=== PATIENT | male | born 1940 | race Caucasian/White ===

== ENCOUNTER 2020-02-13 06:54 | Emergency (ER) | payer OTHER ==
[~2020-02-13] VITALS: Ht 175.3 cm; Wt 72.6 kg
[2020-02-13 07:22] VITALS: BP_SYST 145
[2020-02-13] MEDS ORDERED: CLOP75TA2 PO (07:22)
[2020-02-13] MEDS ORDERED: METO-540 PO (07:22)
[2020-02-13] MEDS ORDERED: LIP20 PO (07:22)
[2020-02-13] MEDS ORDERED: ASPI-524 PO (07:22)
[2020-02-13] MEDS ORDERED: ISOS5TAB2 PO (07:22)
[2020-02-13] MEDS ORDERED: NPH,100V SUBQ (07:22)
[2020-02-13] MEDS ORDERED: cloNIDine HCL 0.1 MG TABLET PO ONE ×2 (08:00→09:45)
[2020-02-13] MEDS ORDERED: cloNIDine HCL 0.1 MG TABLET ONE ×2 (08:15→10:04)
[2020-02-13] MEDS ORDERED: hydrALAZINE HCL 20 MG/ML VIAL IVP ONE ×2 (11:00→12:30)
[2020-02-13] MEDS ORDERED: SSNOVOLOG SUBCUT (12:35)
[2020-02-13] MEDS ORDERED: CALC0.5C11 PO (12:35)
[2020-02-13] MEDS ORDERED: CARV12.548 PO (12:35)
[2020-02-13] MEDS ORDERED: INSU100V11 SQ (12:35)
[2020-02-13] MEDS ORDERED: FURO-149 PO (12:35)
[2020-02-13] MEDS ORDERED: ZOLP5TAB2 PO (12:35)
[2020-02-13] MEDS ORDERED: ISOS30TA6 PO (12:35)
[2020-02-13] MEDS ORDERED: LIP80 PO (12:35)
[2020-02-13] MEDS ORDERED: DEXT1TAB48 PO (12:35)
[2020-02-13] MEDS ORDERED: LEVO25TA7 PO (12:35)
[2020-02-13] MEDS ORDERED: MULT-1117 PO (12:35)
[2020-02-13 13:18] LABS: ANION GAP 12 (5-15); BASOPHILS % (AUTO) 0.5 % (0.0-2.0); CALCIUM 9.4 mg/dL (8.4-11.0); CHLORIDE 103 mmol/L (98-107); CREATININE 3.86 mg/dL (0.55-1.30); EOSINOPHILS % (AUTO) 0.5 % (0.0-4.0); GLUCOSE 347 mg/dL (70-99); HEMATOCRIT 40.6 % (36-54); HEMOGLOBIN 13.3 g/dL (14.0-18.0); LYMPHOCYTES # (AUTO) 1.2 K/uL (1.0-5.5); LYMPHOCYTES % (AUTO) 18.5 % (20.5-51.5); MEAN CORPUSCULAR HEMOGLOBIN 29 pg (27-31); MEAN CORPUSCULAR HGB CONC 33 % (32-36); MEAN CORPUSCULAR VOLUME 88 fL (79.0-98.0); MONOCYTES # (AUTO) 0.3 K/uL (0.0-1.0); MONOCYTES % (AUTO) 4.5 % (1.7-9.3); NEUTROPHILS # (AUTO) 4.8 K/uL (1.8-7.7); PLATELET COUNT (AUTO) 107 K/uL (130-430); RED BLOOD CELL COUNT(AUTO) 4.63 MIL/uL (4.2-6.2); RED CELL DISTRIBUTION WIDTH 13.1 % (9.0-15.0); SODIUM SERUM 140 mmol/L (136-145); UREA NITROGEN, BLOOD 70 mg/dL (8-21); WHITE BLOOD COUNT (AUTO) 6.4 K/uL (4.8-10.8)
[2020-02-13 13:27] LABS: ALANINE AMINOTRANSFERASE 24 U/L (12-78); ALBUMIN 3.5 g/dL (3.4-4.8); ASPARTATE AMINOTRANSFERASE 23 U/L (10-37); TOTAL BILIRUBIN 0.7 mg/dL (0.0-1.0)
[2020-02-13 14:46] VITALS: BP_SYST 142
== END 2020-02-13 14:47 | disposition home or self-care (01) ==
LOC: SED 06:54
DX: E10.22 Type 1 diabetes mellitus with diabetic chronic kidney disease (principal); I12.9 Hypertensive chronic kidney disease with stage 1 through stage 4 chronic kidney disease, or unspecified chronic kidney disease; N18.9 Chronic kidney disease, unspecified; E10.649 Type 1 diabetes mellitus with hypoglycemia without coma; Z79.4 Long term (current) use of insulin; Z79.899 Other long term (current) drug therapy
CPT/HCPCS: 36415; 71045; 80053; 82962; 83880; 84484; 85025; 96374; 96376; 99291; J0360; 99285